=== PATIENT | female | born 1990 | race Caucasian/White ===

== ENCOUNTER 2017-06-30 17:44 | Emergency (ER) | payer SELFPAY ==
--- NOTE | ~2017-06-30 | ER ---
PATIENT'S NAME: NAHID WALDEN [facility] AGE: 27 Y [address] ROOM: [place] [id number] LOCATION: [facility] ADMIT DATE: 06/30/2017 ER/Outpatient Report DISCHARGE DATE: FAMILY PHYSICIAN: PHYSICIAN, NO ATTENDING PHYSICIAN: Emmanuel Gray Admission date and time documented in medical record. I saw the patient at 1810 hours. CHIEF COMPLAINT: Room spins with lightheadedness x24 hours, accompanied with some middle abdominal pain with diarrhea. HISTORY OF PRESENT ILLNESS: This patient is a 27-year-old female, presented to the emergency room with approximately 24-hour history of vertigo. Room spins. She has little lightheadedness also. She is okay if she is in one position, but when she changes positions, she gets vertigo. She had nausea, vomiting, diarrhea yesterday, none today. No fever, chills, or sweats. No coughs, cold, flus. No chest pain or shortness of breath. Does have a little bit headache, but no eyes, ears, nose, throat, neck, or spine pain. No fall or trauma. No syncope. The patient is having some mild intermittent abdominal pain. No urinary frequency, urgency, or dysuria. No joint, muscle swelling, redness, or pain. No skin eruptions or rash. No history of neuro changes, psych issues, or endocrine problems. HOME MEDICATIONS: None. ALLERGIES: AUGMENTIN, PENICILLIN. SOCIAL HISTORY: Nonsmoker. Occasional use of alcohol. Occasional use of marijuana. SIGNIFICANT PAST MEDICAL HISTORY: Negative. OPERATIONS: Appendectomy. Left ear surgery. REVIEW OF SYSTEMS: All systems reviewed by me are negative with the exception of those discussed in the history of the present illness. PATIENT'S NAME: NAHID WALDEN [facility] AGE: 27 Y [address] ROOM: [place], [place] [id number] LOCATION: [facility] ADMIT DATE: 06/30/2017 ER/Outpatient Report DISCHARGE DATE: FAMILY PHYSICIAN: PHYSICIAN, NO ATTENDING PHYSICIAN: Emmanuel Gray PHYSICAL EXAMINATION: VITAL SIGNS: Pulse 89 regular, respirations 16, blood pressure 125/96, O2 saturation on room air is 95%. HEAD: Normocephalic. No abrasion, contusion, laceration, or swelling of the scalp or face. EYES: Extraocular muscles intact. PERRL. No nystagmus. EARS: Clear TMs bilaterally. NOSE: Clear. THROAT: Clear. Mucous membranes moist. Teeth, jaw intact. NECK: No nuchal rigidity. No thyromegaly or cervical adenopathy. No carotid bruits. SPINE: Nontender, no deformity. LUNGS: Clear. Good air flow. No rales, rhonchi, or wheezes. HEART: Regular. Pulses are palpable. No chest wall or ribcage pain to palpation. ABDOMEN: Soft, nondistended, nontender. Good bowel tones. No organomegaly or abnormal mass palpable. No CVA tenderness. EXTREMITIES: No peripheral edema, cyanosis, or deformity. NEUROVASCULAR: Intact. SKIN: Clear. No skin eruptions or rash. DIAGNOSTIC DATA: EKG showed sinus rhythm. No acute ST elevation, or ischemic changes, or arrhythmia. LABORATORY DATA: CMS was normal except for a low potassium of 3.5, magnesium was 1.9. CPK was 32. [id number] cardiac enzymes were normal. CRP was normal at 0.67. Thyroid tests were normal including TSH and a free T4. ProBNP was normal at 69. White count 6100, 69 segs, 20 lymphs, 10 monos, 1 eo. Hemoglobin is 14.9, hematocrit 41.8, platelet count is 221,000. Protime is 10.7. INR 1.02. Venous pH was 7.39. CT scan of the head showed no intracranial bleed, midline shift, mass effect, or skull fracture. EMERGENCY DEPARTMENT COURSE: Did give the patient IV normal saline, fluids. Gave her Valium 4 mg IV in the emergency room. Antivert 25 mg orally in the emergency department. She did improve with this therapy. IMPRESSION: 1. Benign positional vertigo. Etiology uncertain most likely viral. 2. Nausea, vomiting, and diarrhea with abdominal pain. Etiology uncertain but most likely viral. PLAN: PATIENT'S NAME: NAHID WALDEN [facility] AGE: 27 Y [address] ROOM: [place], [place] [address] LOCATION: [facility] ADMIT DATE: 06/30/2017 ER/Outpatient Report DISCHARGE DATE: FAMILY PHYSICIAN: PHYSICIAN, NO ATTENDING PHYSICIAN: Emmanuel Gray The patient dismissed home. Observation. Activity as tolerated. Fluids; diet as tolerated. Avoid sudden positional change with sudden movements. Antivert 25 mg 4 times a day for a week. Valium 2 mg 3 times a day for a week. Follow up with personal physician in 5 to 7 days if needed or sooner if needed. Discussion ensued with the patient and her regarding my findings and recommendations, they understand. MD YURIDIA PEDRAZA/modl /[id number] d: 07/01/17 0010 t: 07/01/17 1809, OUTPATIENT REPORT
[2017-06-30 18:40] LABS: BASOPHIL % 0.3 %; BICARBONATE 26.6 mmol/L (18.0-23.0); EOSINOPHIL # 0.1 K/uL (0.0-0.5); EOSINOPHIL % 0.8 %; HEMATOCRIT 41.8 % (33.0-46.0); HEMOGLOBIN 14.9 g/dL (11.0-15.0); IMMATURE GRANULOCYTE % 0.3 %; LYMPHOCYTE # 1.2 K/uL (0.8-4.0); LYMPHOCYTE % 19.8 %; MCHC 35.6 gm/dL (32.0-36.5); MCV 86.9 fl (83.0-98.0); MONOCYTE # 0.6 K/uL (0.0-1.0); MONOCYTE % 9.6 %; MPV 11.1 fl (9.4-12.4); NEUTROPHIL # (ANC) 4.2 K/uL (1.8-7.8); NEUTROPHIL % 69.2 %; NRBC % 0 /100WBC (0-0.00); PCO2 44 mmHg (35-45); PLATELET COUNT 221 K/uL (150-450); RBC 4.81 M/uL (3.50-5.00); RDW-CV 12.7 % (11.9-14.6); WBC 6.1 K/uL (4.0-11.0)
[2017-06-30 18:41] LABS: PO2 34 mmHg (80-90)
[2017-06-30 18:48] LABS: INR - (THERAPEUTIC) 1.02 (0.92-1.07); PROTIME 10.7 SECONDS (9.8-11.4)
[2017-06-30 18:59] LABS: ALBUMIN 3.6 gm/dL (3.5-5.0); ALK PHOS 76 IU/L (33-138); ALT 21 IU/L (12-78); ANION GAP 10.5 (10.0-19.0); AST 15 IU/L (10-40); BLOOD UREA NITROGEN 10 mg/dL (6-24); CALCIUM 8.6 mg/dL (8.5-10.5); CHLORIDE 108 mMol/L (96-110); CO2 25 mMol/L (22-32); CPK 32 IU/L (21-215); CREATININE 0.8 mg/dL (0.5-1.1); MAGNESIUM 1.9 mg/dL (1.8-2.6); POTASSIUM 3.5 mMol/L (3.7-5.1); SODIUM 140 mMol/L (135-145); TOTAL BILIRUBIN 0.7 mg/dL (0.0-1.5); TOTAL PROTEIN 7.2 g/dL (6.0-8.4)
== END 2017-06-30 20:07 | disposition disaster alternative care site (69) ==
LOC: GMED 17:44
PROVIDERS: Emergency Medicine
DX: H81.10 Benign paroxysmal vertigo, unspecified ear (principal); Z88.0 Allergy status to penicillin; Z88.1 Allergy status to other antibiotic agents; Z90.49 Acquired absence of other specified parts of digestive tract; Z98.890 Other specified postprocedural states
CPT/HCPCS: J3360; J7030